=== PATIENT | male | born 1955 | race Two or more races ===

== ENCOUNTER → 2018-07-04 | Outpatient (CLI) | payer OTHER ==
[~2018-07-04] MED LIST: DIPH25CA61 PO; IBUP-1623 PO; MONT10TA9 PO
== END | disposition home or self-care (01) ==
LOC: RAD 12:00
PROVIDERS: ATTEND Family Medicine
DX: R91.1 Solitary pulmonary nodule (principal)
CPT/HCPCS: 71046

== ENCOUNTER → 2018-07-26 | Outpatient (CLI) | payer OTHER | END | disposition home or self-care (01) | LOC: CFH 09:28 | PROVIDERS: ATTEND Family Medicine | DX: K80.20 Calculus of gallbladder without cholecystitis without obstruction (principal); R74.0 Nonspecific elevation of levels of transaminase and lactic acid dehydrogenase [LDH] | CPT/HCPCS: 76700 ==

== ENCOUNTER 2021-05-09 19:45 | Inpatient (IN) | payer OTHER ==
[~2021-05-09] VITALS: Ht 160 cm; Wt 64.6 kg
[~2021-05-09 19:45] MED LIST changes: +MONT10TA17 PO; -MONT10TA9 PO
[2021-05-09 21:10] LABS: BASOPHILS % (AUTO) 1 % (0-1); EOSINOPHILS % (AUTO) 4 % (1-7); LYMPHOCYTES % (AUTO) 34 % (22-44); MEAN PLATELET VOLUME 8.9 fL (7.4-10.4); MONOCYTES % (AUTO) 11 % (2-9); NEUTROPHILS % (AUTO) 51 % (42-75); PLATELET COUNT 129 x10^3/uL (130-400); RED BLOOD COUNT 5.53 x10^6/uL (4.38-5.82); RED CELL DISTRIBUTION WIDTH 13.8 % (9.4-14.8)
[2021-05-09 21:19] LABS: ALBUMIN 3.7 g/dL (3.4-5.0); ANION GAP 5 mmol/L (5-15); CHLORIDE 106 mmol/L (98-107)
--- NOTE | 2021-05-09 21:23 | NUR ---
LEAN SENSEI: PT. TO ROOM FROM LOBBY AT THIS TIME.
[2021-05-09 21:26] LABS: ALANINE AMINOTRANSFERASE 90 U/L (12-78); ALKALINE PHOSPHATASE 72 U/L (45-117); BILIRUBIN,TOTAL 0.4 mg/dL (0.2-1.0); CREATININE 0.95 mg/dL (0.7-1.3); TOTAL PROTEIN 7.8 g/dL (6.4-8.2); TROPONIN I < 0.015 ng/mL (0.000-0.045)
--- NOTE | 2021-05-09 22:15 | NUR ---
PATIENT UP TO RESTROOM WITHOUT COMPLICATIONS.
--- NOTE | 2021-05-09 22:53 | NUR ---
PATIENT TAKEN TO CT VIA WHEELCHAIR AND TECH.
[2021-05-09] MEDS ORDERED: OMNIPAQUE 350 MG/ML, 100ML BOTTLE ONE (23:17)
--- NOTE | 2021-05-09 23:28 | NUR ---
PATIENT RETURNED FROM CT. TOLERATED WELL. NO NOTED ADDITIONAL NEEDS AT THIS TIME. AWAITING READS FROM CT.
--- NOTE | 2021-05-09 23:52 | NUR ---
SPOKE WITH PATIENT AND FAMILY REGARDING PLAN OF CARE. PATIENT WILL BE UPDATED ON ADDITIONAL INFORMATION BY MD. NO NOTED ADDITIONAL NEEDS AT THIS TIME. WILL CONTINUE TO MONITOR. VSS.
[2021-05-10] MEDS ORDERED: ASPIRIN 81 MG TABLET CHEW PO ONE
[2021-05-10] MEDS ORDERED: ASPIRIN 81 MG TABLET CHEW ONE (00:03)
--- NOTE | 2021-05-10 00:15 | NUR ---
PATIENT AND FAMILY UPDATED ON PLAN OF CARE. PATIENT HAS AGREED TO BE ADMITTED TO THE HOSPITAL. NO NOTED ADDITIONAL NEEDS AT THIS TIME. VSS. WILL CONTINUE TO MONITOR.
[2021-05-10] MEDS ORDERED: ACETAMINOPHEN 650 MG/20.3 ML UDC PO PRN (01:30)
[2021-05-10] MEDS ORDERED: LABETALOL 5MG/ML, 20ML IV PRN (01:30)
[2021-05-10] MEDS ORDERED: OXYcodone 5 MG/5 ML ORAL.SOL UDC PO PRN (01:30)
[2021-05-10] MEDS ORDERED: GUAIFENESIN/DM 200-20MG, 10ML UDC PO PRN (01:30)
[2021-05-10] MEDS ORDERED: ONDANSETRON 2MG/ML, 2ML IVPush PRN (01:30)
[2021-05-10] MEDS ORDERED: POLYETHYLENE GLYCOL 17 GM PACKET PO PRN (01:30)
[2021-05-10] MEDS ORDERED: ENOXAPARIN 40 MG/0.4 ML SQ SCH (01:30)
[2021-05-10 02:32] VITALS: BP 155/97
[2021-05-10 05:01] VITALS: BP 159/90
[2021-05-10 07:47] VITALS: BP 181/95
[2021-05-10 07:49] LABS: BASOPHILS % (AUTO) 1 % (0-1); EOSINOPHILS % (AUTO) 4 % (1-7); LYMPHOCYTES % (AUTO) 33 % (22-44); MEAN CORPUSCULAR HGB CONC 34.3 g/dL (33.2-36.2); MEAN PLATELET VOLUME 9.2 fL (7.4-10.4); MONOCYTES % (AUTO) 9 % (2-9); NEUTROPHILS % (AUTO) 54 % (42-75); PLATELET COUNT 127 x10^3/uL (130-400); RED BLOOD COUNT 5.94 x10^6/uL (4.38-5.82); RED CELL DISTRIBUTION WIDTH 13.7 % (9.4-14.8)
[2021-05-10 08:01] LABS: ANION GAP 4 mmol/L (5-15); CALCIUM 9.2 mg/dL (8.5-10.1); CHLORIDE 107 mmol/L (98-107); CHOLESTEROL, TOTAL 161 mg/dL (140-239); CREATININE 0.93 mg/dL (0.7-1.3); TRIGLYCERIDES 139 mg/dL (50-200); VLDL CHOLESTEROL 28 mg/dL (0-25)
[2021-05-10 08:03] LABS: CHOL/HDL RATIO 4.1; HDL CHOL % 24 % (26-37); HDL CHOLESTEROL (DIRECT) 39 mg/dL (40-60); LDL CHOLESTEROL,CALCULATED 94 mg/dL (54-169); LDL/HDL RATIO 2.4 (0.5-3.0)
[2021-05-10] MEDS ORDERED: ASPIRIN 81 MG TABLET CHEW PO SCH (09:00)
[2021-05-10] MEDS ORDERED: LISI5TAB7 PO (10:01)
[2021-05-10] MEDS ORDERED: ATOR40TA78 PO (10:01)
[2021-05-10] MEDS ORDERED: ASPI-963 PO (10:01)
[2021-05-10 11:07] VITALS: BP 169/75
[2021-05-10] MEDS ORDERED: ATORVASTATIN 80 MG TABLET PO SCH (21:00)
== END 2021-05-10 11:29 | disposition home or self-care (01) | DRG 69 ==
LOC: ED 05-10 01:43 → EDIP 05-10 01:45 → 4WST 05-10 02:23
PROVIDERS: ADMIT Internal Medicine; ATTEND Hospitalist
DX: G45.9 Transient cerebral ischemic attack, unspecified (principal); E78.5 Hyperlipidemia, unspecified; F17.200 Nicotine dependence, unspecified, uncomplicated; I10 Essential (primary) hypertension
CPT/HCPCS: 36415; 70450; 70496; 70498; 70551; 71045; 80048; 80053; 80061; 83880; 84484; 85025; 93005; 99285; G0378; Q9967